=== PATIENT | female | born 1985 | race Caucasian/White ===

== ENCOUNTER 2024-02-05 01:05 | Day surgery (SDC) | payer BC, SELFPAY ==
[2024-02-04 18:10] VITALS: BP 139/75
--- NOTE | 2024-02-04 19:25 | ED.GENMED ---
History of Present Illness
General
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
Source: patient
Exam Limitations: none
Time Seen by Provider: 02/04/24 18:38
History of Present Illness
History of Present Illness:
This is a 38 year old female that comes in with c/o lower pain with concern for fibroids. States that last February she started with what she thought was a Bartholin cyst.States that it was growing inside. Then this winter it started to protrude out
and she started with lower abd pain. States that now it is so painful that he called an [facility] PAPER TESTER office near her that had same day visits. States that this was [facility]. Patient was sent to the ER. States that she has low back pain and she leaks
all the time. States that she dose feel like she is emptying her bladder. States that she has had chills in the past. Denies any fever, chest pain, SOB, nausea, vomiting, diarrhea, headache, dizziness, urinary burning.
Past History
Past History
ED Past Medical History: None; Negative Asthma, HTN, Hypercholesterolemia or NIDDM
ED Past Surgical History:
Social History
Tobacco: Non-smoker
Alcohol: Occasional
Personal:
Living: with family
Review of Systems
Review of Systems
All Other Systems: ROS reviewed and negative except as documented in HPI and ROS
Constitutional: Reports chills; Denies fever
EENT: Reports no symptoms
Respiratory: Reports no symptoms; Denies cough or trouble breathing
Cardiac: Reports no symptoms; Denies chest pain
ABD/GI: Reports abdominal pain (Lower abd pain); Denies nausea, vomiting or diarrhea
: Reports other (Something is hanging out); Denies dysuria, frequency or urgency
Musculoskeletal: Reports no symptoms
Skin: Reports no symptoms
Neurological: Reports no symptoms; Denies dizzy or headache
Psychiatric: Reports no symptoms
Phy Exam
General Physical Exam
General Presentation: mild distress
General age: appears stated age
General Skin: warm, dry and pale
General Habitus: normal
General Mental: alert
General Hydration: appears well hydrated
ENT Exam
ENT Exam: TM's normal, pharynx normal and neck supple
Eye Exam
Eye Exam: EOMI
Cardiovascular Exam
Cardiovascular Exam: no edema, no murmur, normal peripheral pulses and tachycardia
Pulmonary Exam
Pulmonary Exam: lungs clear, no respiratory distress, no rales, chest non tender, no crackles, no rhonchi, no wheezing and no cough
Gastrointestinal Exam
Gastrointestinal Exam: normal bowel sounds, soft, no organomegaly, no pulsatile mass, non distended and tender (Slight lower abd tenderness with palpation)
Genitourinary Exam Female
Vaginal Exam: other (Large prolapsed, believed to be the Uterus)
Vaginal Bleeding: none
Musculoskeletal Exam
Musculoskeletal Exam: full ROM and no edema
Skin Exam
Skin Exam: normal color, warm/dry, no rash and no petechia
Psychiatric Exam
Psychiatric Exam: normal mood/affect
Course
Orders/Labs/Results
Orders:
Orders
02/04/24 19:24
CT Abd/pelvis W Iv Cont Urgent
Comment: Concern for Uterine prolapse
Reason For Exam: Lower abd pain.
Test Result ONCE
02/04/24 20:24
Type+Screen Urgent
Complete Blood Count/With Diff Urgent
Comprehensive Metabolic Panel Urgent
HCG, Serum Qualitative Screen Urgent
Lactic Acid Urgent
02/04/24 20:37
Urinalysis Reflex To Culture Urgent
Date Specimen was Collected: 02/04/24
Time Specimen was Collected: 20:33
Urine Microscopic Reflex Cult Urgent
Urine Culture Urgent
AGGIE Source: U
Specimen Description:
Date Specimen was Collected: 02/04/24
Time Specimen was Collected: 20:33
02/04/24 21:30
* Blood Bank Products Urgent
Blood Bank Products: *Packed RBC Leuko(PRBC's)
Quantity: 2
Transfuse Today: Yes
Reason: Anemia
IV Insert/Care/Rem.- Treatment PRN
02/04/24 23:14
HYDROmorphone [Dilaudid] 1 mg IV NOW STA
Ondansetron Injectable [Zofran] 4 mg IV NOW STA
Abnormal Lab Results
02/04/24 02/04/24
20:24 20:37
WBC 12.3 H 10^3/uL
(4.8-10.8)
RBC 3.71 L 10^6/uL
(4.20-5.40)
Hgb 6.8 L* g/dL
(12.0-16.0)
Hct 23.5 L %
(37.0-47.0)
MCV 63.1 L fL
(81.0-99.0)
MCH 18.3 L pg
(27.0-31.0)
MCHC 29.1 L g/dL
(33.0-37.0)
RDW 19.1 H %
(11.5-14.5)
Plt Count 790 H 10^3/uL
(130-400)
Abs Immat Gran (auto) 0.1 H 10^3/uL
(0-0.05)
Absolute Neuts (auto) 9.5 H 10^3/uL
(1.4-6.5)
Absolute Monos (auto) 0.9 H 10^3/uL
(0.1-0.6)
Neutrophils % 77.4 H %
(42.2-75.2)
Lymphocytes % 11.9 L %
(20.5-51.1)
Urine Ketones Trace A
(Negative)
Ur Occult Blood Reflex 2+ A
(Negative)
Leukocyte Esterase Rfl 2+ A
(Negative)
Urine RBC 11-15 A /HPF
(0-2)
Urine WBC (Reflex) 11-15 A /HPF
(0-5)
Urine Bacteria (Reflex) Moderate A
(Negative)
Crossmatch IS Only See Detail
02/04/24 20:24
02/04/24 20:24
Leukocytosis. H/H very low. Anemia, Plt elevated. Urine questionable for infection. HCG negative.
Vital Signs
Initial and Last Documented VS:
Initial Vital Signs
Temp Pulse Resp BP Pulse Ox
98.4 F 110 20 139/75 99
02/04/24 18:10 02/04/24 18:10 02/04/24 18:10 02/04/24 18:10 02/04/24 18:10
Last Documented Vital Signs
Temp Pulse Resp BP Pulse Ox
98.4 F 110 20 139/75 99
02/04/24 18:10 02/04/24 18:10 02/04/24 18:10 02/04/24 18:10 02/04/24 18:10
MDM/Problems Addressed
Differential Diagnosis Includes:
Uterine Prolapse, Bladder prolapse.
MDM/Problems Addressed:
This is a 38 year old female that started last February with the feeling that she has bartholin cyst. States that this continued to grow and know is very painful and hanging out.
Will get labs and CT scan.
Back into see patient and . Explained that her Hgb is very low. Would like to give patient blood. Consent signed and PRBC's ordered.
Message sent to Dr. Gupta to see if patient can be admitted under [facility]. Await her response.
Chronic conditions affecting care:
NA
Acute Exacerbation and/or Progression of Chronic Illness:
NA
*Radiology
Radiology exam reviewed: radiology read reviewed (CT-Prolapsed of the cervix and lower uterie segment. No acute inflammatory process within the abd or pelvis. NO bowel obstruction. NO obstructive Uropathy. 2 small low-attenuation structures in the
liver, as described. MRI may be considered as further evaluation/characterization. )
*Pulse Oximetry
Patient hypoxic: no
*EKG
Interpreted by ED Provider?: NA
Rate: EKG- N/A
*Film Technician Interpretation
Rate: Film Technician- N/A
*Critical Care Note
Total Time (30-74mins, 75-104mins- exclusive of procedures): Not Applicable
ED Attending Note
-
Portions of this chart may have been created with voice recognition software.� Occasional wrong word or��sound alike� substitutions may have occurred due to the inherent limitations of voice recognition software.
Discharge Plan
Departure
Patient Disposition: Admit
Date of Disposition: 02/04/24
Time of Disposition: 23:28
Admit to: Med/Surg
Presentation/result/management discussed w/ accepting MD/DO: Hospitalist
Patient with high blood pressure during this ER visit?: Yes
Condition: Good
Covid-19: Not Applicable
Discharge Problem:
Signs and symptoms of anemia, Complete uterine prolapse
Prescriptions:
No Action
vit-iron fum-folic ac [ Tablet] 1 EACH tablet
ferrous sulfate [iron] 325 MG tablet
325 mg PO
Referrals:
NONE,* [Active] -
Interventions
Interventions:
*Risk Screen - Suicide Last Done: 02/04/24 18:10
*General Assessment Last Done: 02/04/24 18:10
*Neglect/Abuse Screening Last Done: 02/04/24 18:10
ED- Fall Risk Assessment Last Done: 02/04/24 20:30
*ED COVID-19 Vaccine History Last Done: 02/04/24 20:30
ED-Female Genitourinary Assessment Last Done: 02/04/24 20:30
Discharge Date and Time
Print Language: TURKMEN
[2024-02-04 20:30] VITALS: BMI 26.8
[2024-02-04 21:03] LABS: Urine Albumin Trace (Neg - Trace); Urine Bilirubin Negative (Negative); Urine Character Clear (Clear); Urine Color Yellow; Urine Glucose Negative (Negative); Urine Ketone Trace (Negative); Urine Leukocyte 2+ (Negative); Urine Nitrite Negative (Negative); Urine Occult Blood 2+ (Negative); Urine Urobilinogen Negative (Neg - 1+)
[2024-02-04 21:08] LABS: % Basophils 0.6 % (0-2); % Eosinophils 2.5 % (0-6); % Immature Granulocytes 0.4 % (0-0.5); % Lymphocytes 11.9 % (20.5-51.1); % Monocytes 7.3 % (1.7-9.3); % Neutrophils 77.4 % (42.2-75.2); Absolute Basophils 0.1 10^3/uL (0-0.2); Absolute Eosinophils 0.3 10^3/uL (0-0.7); Absolute Immature Granulocytes 0.1 10^3/uL (0-0.05); Absolute Lymphocytes 1.5 10^3/uL (1.2-3.4); Absolute Monocytes 0.9 10^3/uL (0.1-0.6); Absolute Neutrophils 9.5 10^3/uL (1.4-6.5); Hematocrit 23.5 % (37.0-47.0); Hemoglobin 6.8 g/dL (12.0-16.0); Mean Corp Hgb Conc. 29.1 g/dL (33.0-37.0); Mean Corpuscular Hgb 18.3 pg (27.0-31.0); Mean Corpuscular Volume 63.1 fL (81.0-99.0); Nucleated Red Blood Cells % 0 %; Red Blood Cell Count 3.71 10^6/uL (4.20-5.40); Red Cell Dist. Width 19.1 % (11.5-14.5); White Blood Cell Count 12.3 10^3/uL (4.8-10.8)
[2024-02-04 21:12] LABS: HCG, Serum Qualitative Screen Negative
[2024-02-04 21:14] LABS: Lactic Acid 1.4 mmol/L (0.7-2.0)
[2024-02-04 21:15] LABS: Urine Mucus Moderate
[2024-02-04 21:17] LABS: ALT (SGPT) 15 U/L (0-35); AST (SGOT) 18 U/L (14-36); Albumin 3.6 g/dl (3.5-5.0); Alkaline Phosphatase 84 U/L (38-126); Blood Urea Nitrogen 11 mg/dl (7-17); Calcium 8.8 mg/dl (8.4-10.2); Carbon Dioxide 25 mmol/L (22-30); Chloride 105 mmol/L (98-107); Estimated Creatinine Clearance 125 ml/min; Glucose 94 mg/dl (70-99); Potassium 3.6 mmol/L (3.5-5.1); Sodium 139 mmol/L (135-145); Total Bilirubin 0.3 mg/dl (0.2-1.3); Total Protein 6.5 g/dl (6.3-8.2); eGFR > 60.00
[2024-02-04 21:18] LABS: Urine Bacteria Moderate (Negative); Urine Calcium Oxalate Crystals Present
[2024-02-04 21:22] LABS: Mean Platelet Volume 9.1 fL (7.4-10.4); Platelet Count 790 10^3/uL (130-400)
[2024-02-04 21:26] LABS: Hypochromasia 2+; Normal RBC Morphology No; Ovalocytes 1+
[2024-02-04 23:35] VITALS: BP 122/83
[2024-02-04 23:38] VITALS: BP 113/79
[2024-02-04 23:55] VITALS: BP 118/75
[2024-02-05] VITALS (23 sets, daily range): BP systolic 104–129; BP diastolic 65–84; BMI 26.4
--- NOTE | 2024-02-05 00:45 | HPS.HSE ---
Family Physician
-
Family Physician: Scotty Sevilla
Chief Complaint
-
lower pelvic pain
History of Present Illness
The patient is a 38 yo woman with past medical history significant for anemia, heavy menses, ADD, anxiety, , who presents to the ED due to vaginal bleeding and prolapsed uterus. She has been having increasing fatigue, feeling 'bad' and has
also had what she though was an enlarging Bartholin cyst in the vaginal region, for a 'very long time.' She has severe anxiety regarding going to the hospital/doctors and so has not seen Paper Reeler since the of her 10 yo child in 2013. She has an 18
yo and 10 yo. She has had significant low back pain keeping her from sleeping well at night, and a large prolapsed uterus. During menses she has to use depends and towels. She denies fever, no active n/v, no diarrhea. She does have difficulty
emptying her bladder.
HCG negative
CT findings of
ED findings:
Medical History
Past Medical History
Past Medical History: Reports Psychiatric (Anxiety, ADD) and Other (Anemia)
Past Surgical History: Reports (2012)
Social History
Tobacco: Non-smoker
Alcohol: None
Drug: None
Personal:
Living: With Family
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
Family History
Family History: Other (HTN)
Allergies / Home Medications
Allergies reflects when Allergies were last updated in [employer].
Home Medications with original date entered in [employer]
Allergy/Medication List:
Allergies
Allergy/AdvReac Type Severity Reaction Status Date / Time
No Known Allergies Allergy Verified 02/05/24 00:18
Home Medications
lisdexamfetamine 40 mg capsule (Vyvanse) 40 mg PO BID 02/05/24
Review of Systems
-
A 12 point ROS was completed and negative except as noted: Yes
Physical Exam
Vital Signs
Vital Signs
Temp Pulse Resp BP Pulse Ox
99.6 F 98 16 129/82 100
02/04/24 23:55 02/04/24 23:55 02/04/24 23:55 02/05/24 00:06 02/05/24 00:06
Physical Exam
General: Well Developed, Well Nourished, No Apparent Distress and Conversant
HEENT: NormoCephalic, Anicteric and Moist mucous membranes
Respiratory: Clear
Cardiac: S1/S2 and Regular Rhythm
GI: Soft, Non Tender and Non Distended
Genito-urinary: Other (large prolapse)
Musculoskeletal: No Clubbing, No Cyanosis and No Edema
Skin: Warm and Dry
Neuro: AO x 3 and No Motor Deficits
Laboratory Results
-
02/04/24 20:24
02/04/24 20:24
Laboratory Results
Lactic Acid 1.4 mmol/L (0.7-2.0) 02/04/24 20:24
Total Bilirubin 0.3 mg/dl (0.2-1.3) 02/04/24 20:24
AST 18 U/L (14-36) 02/04/24 20:24
ALT 15 U/L (0-35) 02/04/24 20:24
Alkaline Phosphatase 84 U/L (38-126) 02/04/24 20:24
Data Reviewed
-
Lab Data: Labs Reviewed by me, Discussed with Nurse, Discussed with Patient and Discussed with Family
Impression/Plan
-
IMPRESSION:
#Acute or subacute blood loss anemia
#Likely severe iron-deficiency anemia
#Prolapse of the cervix and lower uterine segment.
#ADD
#Anxiety
#Incidental finding on CT:
Liver: Normal in size. Along the posterior margin of the right lobe there is an 11 mm low-attenuation space-occupying lesion which is diminished in attenuation on delayed imaging. Internal CT density measurement is approximately 32, unchanged on
delayed imaging. Therefore, no associated enhancement. Probable small complex cyst. In the right hepatic dome, there is a small 11 mm low-attenuation structure which is nearly isodense on delayed imaging. This suggests internal enhancement. Possible
considerations include hemangioma, adenoma, or focal nodular hyperplasia. MRI may be considered as further evaluation/characterization.
PLAN:
-Admit med/surg
-Paper Reeler consulted from ED, Paper Reeler consult to address uterine prolapse
-transfusing 2 unit PRBC starting in ED, repeat CBC post transfusion
-iron studies
-Vyvanse BID per home med
-Discuss incidental findings on CT of liver possible cystic lesion- rec MRI OP follow-up
DVT proph-PCDs
Full Code
[2024-02-05] MEDS: ZOFRAN 4 MG IV (01:30)
[2024-02-05] MEDS: DILAUDID 1 MG IV (01:31)
--- NOTE | 2024-02-05 01:33 | CON.MD ---
Consultation - Medical
-
38yo presents to ER due to lower abdominal cramping and mass protruding from her vagina. She states that February 2023 she felt a lump in the vagina and thought she had a Bartholin's cyst, she tried soaking and sitz baths to see if this will
help, but then in the winter, she felt something fall completely out of her vagina and has stayed there. She does not know what it is. Since it came out, she has had consistent yellow/off white drainage that has required her to wear depends daily.
She changes the depends every 2 hours due to the drainage. She does not believe this is urine. Also when the mass came out, she started having a lot of lower pelvic and back pain. She admits to a h/o very heavy menses and anemia, but since this mass
came out, her periods have been much better. She recently completed her period. Says they are monthly, last for 4-5 days. Had one episode of heavy intermenstrual bleeding once in July but none since. She states that she is very anxious about
being in a Dr. office so has not been seen by a BOTTLER HELPER since delivery of her daughter in 2012. She has an annual visit with her PCP but does not do blood work so cannot say where her hgb normally lives. She denies symptoms of anemia currently. she
denies issues with emptying her bowel or bladder. denies blood in her stool.
On 02/03 she states the pain started to get unbearable so she called around to BOTTLER HELPER offices in the area to see who can see her that day. She saw a BOTTLER HELPER with [facility] who did an exam and felt she had a large prolapsed fibroid & uterus and
recommended she would need a hysterectomy. Patient did not feel comfortable continuing care through them, so presented to the ER here.
PMHx: ADHD
PSHx: C/S x1
POBHx: x1, C/Sx1
PGYNHx: per HPI
SHx:no tob/ill, occasional etoh use
Meds: Vyvanse
All: NKDA
Vitals:117/81 T99.6 SpO2 100%
CBC:12.3/6.8-23.5/790
Gen: nad aaox3
Abd: soft, nt, nd
Pelvic: there is a large approx 10-12cm diameter soft tissue mass that has completely prolapsed through the introitus, there is an off white/yellow exudate from the anterior surface of the mass, the posterior surface touches the bed and appears
bruised. Anatomy is very distorted so it is difficult for me to determine exactly where it is originating from but it seems to be the lower uterine segment. the cervix appears to be dilated around the mass, with the uterus also prolapsed to just
beyond the introitus. She denies tenderness when the mass is palpated. There is no bleeding noted. labia appear normal.
CT A/P: Lung bases clear. No pleural effusion.
Abdomen:
Liver: Normal in size. Along the posterior margin of the right lobe there is an 11 mm low-attenuation space-occupying lesion which is diminished in attenuation on delayed imaging. Internal CT density measurement is approximately 32, unchanged on
delayed imaging. Therefore, no associated enhancement. Probable small complex cyst. In the right hepatic dome, there is a small 11 mm low-attenuation structure which is nearly isodense on delayed imaging. This suggests internal enhancement. Possible
considerations include hemangioma, adenoma, or focal nodular hyperplasia. MRI may be considered as further evaluation/characterization.
Gallbladder: Relatively contracted.
Bile Ducts: No bile duct dilatation.
Pancreas: Within normal limits.
Spleen: Normal in size.
Adrenals: No adrenal mass.
Kidneys/Ureters: No obstructive uropathy. Subcentimeter cyst in the lower pole of the left kidney. There is a subtle lobulation of the peripheral luminal margin, bilaterally. Probable lobation, or less likely minor peripheral cortical
scarring.
Bowel: No obstruction or wall thickening. Mild colonic fecal burden.
Appendix: The appendix is normal.
Peritoneum: No ascites or free air.
Vessels: No aortic aneurysm.
Retroperitoneum: No retroperitoneal periaortic mass or adenopathy.
Abdominal Wall: No anterior abdominal wall hernia.
Pelvis:Soft tissue thickening is demonstrated in the region of the introitus, consistent with prolapse of the cervix and lower uterine segment. There are a few tiny low-attenuation foci, possibly reflecting cervical nabothian cysts.
No pelvic sidewall mass or adenopathy. The ovaries are symmetric, with small follicles noted. Urinary bladder is underdistended, and unremarkable.
Bones: No suspicious lesions.
A/P: 38yo with anemia and large pelvic mass
1. Anemia:
-likely related to menstrual blood loss given her reported long h/o heavy menses
-2U PRBCs already started for patient
-patient recently completed her period and is not actively bleeding
-suggest Fe studies to evaluate for Fe deficiency as well
-trend CBC
2. Pelvic Mass
-discussed with patient that she has a large pelvic mass that seems to be pulling her uterus and cervix down resulting in the uterine prolapse. The source of the mass is not clear- > cervical vs ISABELLA. Could be a prolapsed fibroid (more likely) vs a
cervical cancer (less likely- tissue is not necrotic or friable, no lymphadenopathy or evidence of metastatic disease on CT scan).
-The tissue can be biopsied to get an idea of its source. This may be done at bedside or may be better to do an EUA and sample then. Can consider Rip Machine Operator-Onc consult to also assist with this evaluation
--- NOTE | 2024-02-05 03:00 | PTCARENOTE ---
Received pt from er,anxious,but tolerated transfer well.As soon as pt got off of stretcher she wanted to go into BR and change her depends and pads she was wearing due to all the yellow vaginal drainage,pt has been wearing pads and towels at home
to absorb the discharge.Pt tolerated oob well.VS recorded all stable.Afebrile.Pt very anxious and very open about telling this RN about her anxiety.Physical assessment preformed,pt cooperative.#2 unit packed RBCs initiated at this time. at
bedside.
[2024-02-05] MEDS: NSS 1000 IV ×2 (04:58→18:36)
[2024-02-05 08:06] LABS: INR 1.15; PT 14.6 Sec (11.4-14.6)
[2024-02-05 08:08] LABS: Hematocrit 24.9 % (37.0-47.0); Hemoglobin 7.6 g/dL (12.0-16.0); Mean Corp Hgb Conc. 30.5 g/dL (33.0-37.0); Mean Corpuscular Hgb 20.5 pg (27.0-31.0); Mean Corpuscular Volume 67.1 fL (81.0-99.0); Platelet Count 554 10^3/uL (130-400); Red Blood Cell Count 3.71 10^6/uL (4.20-5.40); Red Cell Dist. Width 20.8 % (11.5-14.5)
[2024-02-05 08:10] LABS: Iron 48 ug/dl (37-170)
[2024-02-05 08:19] LABS: Percent Saturation 18 % (20-50); Total Iron Binding Capacity 266 ug/dl (265-497)
[2024-02-05 08:46] LABS: Ferritin 9.2 ng/ml (6.24-137)
[2024-02-05] MEDS: TYLENOL 650 MG PO (09:29)
--- NOTE | 2024-02-05 14:37 | W.PN.UPDATE ---
Update Note
Progress Note Update
Patient seen
Discussed with PROMOTIONAL ADVERTISING ASSISTANT service.
Briefly 38 years old female with severe anemia, although with no evidence of acute blood loss.
Anemia likely due to excessive menstrual bleeding
Workup also consistent with pelvic mass possibly fibroid.
Patient was transfused 2 units of packed blood cells with hemoglobin improved from 6.8-7.6. Iron studies pending.
Additional workup outlined by PROMOTIONAL ADVERTISING ASSISTANT.
Patient will be transferred to PROMOTIONAL ADVERTISING ASSISTANT service
Hospitalist/medicine service will sign off at this point. Please call with questions or if any active medical problems.
--- NOTE | 2024-02-05 15:29 | CM ---
Alert awake oriented patient who lives with her Jm who lives in a 2 story home with 2 step to enter and 14 steps to bed and bathroom. They have 2 children 10yo and 18yo.She is independent in driving and in all activities of daily
living.She was offered VN she declined need.Observation letter copy given.
No VN hx / No SNF history. No adaptive devices
Pharmacy [facility] [address]
PCP DR Sevilla
PLAN Home Declined VN
--- NOTE | 2024-02-05 19:09 | W.PN.OBG.DWH ---
Today's Communication / Plan
-
REcommend EUA, excision of mass, possible D&C. Risks, benefits and alternatives reviewed.
Urgent nature due to size of mass and bleeding
Possible hysterectomy if uncontrolled bleeding.
D/W Dr. Gale
Assessment/Plan
-
Prolapsed pelvic mass protruding through cervix-appears to be large peduculated prolpased fibroid
anemia related to chronic blood loss
Subjective Data
-
Pt seen and examined.
I was delayed in seeing patient due to emergencies in L&D
No dizziness or lightheadness.
Obtained hx
Objective Data
-
Laboratory Results
02/05/24 07:35
02/04/24 20:24
Vital Signs
Temp Pulse Resp BP Pulse Ox
98.2 F 80 17 116/73 100
VSS 02/05/24 15:03 02/05/24 15:03 02/05/24 15:03 02/05/24 15:03 02/05/24 15:03
VSS
abd: soft
LArge 10cm pedunculated smooth mass protruding through cervix outside of vagina. Appears to be peduculated prolapsed fibroid
Posterior fornix is smooth and parametrial space is normal.
Uterus palpated normally.
Cervix prolapsed through vaginal opening
[2024-02-05] MEDS: DILAUDID 0.5 MG IV ×2 (21:25→21:38)
--- NOTE | 2024-02-05 22:00 | W.IMMPOSTOP ---
Surgical Immed Post Op Note
-
Primary Surgeon: Katie Cedillo DO and Dr. Stuart Gale
Pre-op Diagnosis: Prolapsed cervical mass, anemia, menorrhagia, pelvic pain
Post-op Diagnosis: same
Procedure Performed: Exam under anesthesia, excision of prolapsed cervical mass/cervical myomectomy, cervical biopsy, dilation and curettage
Anesthesia Type: general Dr. Velazquez
Specimen / Cultures: 1. cervical mass/prolapsed fibroid 2. biopsy of posterior cervix 3. endometrial curettings
Estimated Blood Loss: 20ml
Complications: none
Operative Findings: Large (approx 10cm)pedunculated, cervical mass/suspected prolapsed fibroid on a wide stalk prolapsed through cervix and vagina.
Prolapsed dilated cervix. Firm posterior cervix (biopsied). Uterus sounded to 9-10 cm.
Vaginal packing and carroll placed.
Counts correct times 2.
stable to recovery.
[2024-02-05] MEDS: NORMOSOL-R/PLASMALYTE-A 1000 IV (22:26)
--- NOTE | 2024-02-05 22:37 | PTCARENOTE ---
Pt arrived to 2S via bed from PACU at 2155. Pt drowsy but arousable to verbal stimuli. VSS. IVF infusing. Head to toe assessment complete. Pts at bedside. Bed locked and in the lowest position. call kirk within reach.
[2024-02-06 01:00] VITALS: BP 112/71
[2024-02-06 02:00] VITALS: BP 109/75
[2024-02-06 03:59] VITALS: BP 109/70
--- NOTE | 2024-02-06 04:33 | DOWNTIME ---
There was a Intense Client Ham Stripper Downtime on 02/06/2024 from 0100 to 02/06/2024 at 0255. Downtime documentation of patient's care, including medication administrations, has been reconciled in the electronic record per guidelines. Refer to the
patient's paper chart under the miscellaneous tab to see printed paper medication records and downtime forms.
[2024-02-06] MEDS: NORMOSOL-R/PLASMALYTE-A 1000 IV (05:25)
[2024-02-06 07:15] VITALS: BP 122/78
[2024-02-06] MEDS: TYLENOL 650 MG PO (08:10)
--- NOTE | 2024-02-06 10:18 | W.PN.GYN ---
Today's Communication / Plan
-
-Pt to ambulate with assistance
-Trial to void
-If ambulating and voiding without issue, may be discharged home today. Discussed post-op limitations, return precautions, medications, iron supplementation and follow-up plan. RTO to see Dr. Cedillo in 1-2wks.
Physician Note
-
Pt doing well this morning. Beauchamp was removed earlier this morning, but vaginal packing still in place. Has not yet ambulated or voided since surgery. She is tolerating a reg diet. Minimal back pain, well-controlled with Tylenol. No other pain. Not
requiring narcotic medication. Not bleeding through the packing. Denies dizziness, CP, SOB, palpitations, leg pain.
VSS- see below
Gen: NAD, WD/WN
Abd: soft, NTTP, ND, no mass
: NEFG, vaginal packing removed with small amount of blood on it. No active bleeding noted after packing removed.
Extr: no c/c/e, no calf TTP
labs- see below
A/P 38yo F POD 1 s/p resection of large prolapsed fibroid/LEEP/D&C. Overall doing well.
Asymptomatic anemia (s/p 3 u PRBCs during this admission).
-Pt to ambulate with assistance
-Trial to void
-If ambulating and voiding without issue, may be discharged home today. Discussed post-op limitations, return precautions, medications, iron supplementation and follow-up plan. RTO to see Dr. Cedillo in 1-2wks.
Aadn Ballard, DO
Vital Signs / Labs
-
Vital Signs and Labs:
Temp Pulse Resp BP Pulse Ox
97.7 F 77 16 122/78 98
02/06/24 07:15 02/06/24 07:15 02/06/24 07:15 02/06/24 07:15 02/06/24 07:15
02/05/24 07:35
02/04/24 20:24
02/04/24
20:24
Crossmatch IS Only See Detail
--- NOTE | 2024-02-06 11:27 | W.DS.TRANS ---
DC Summary - Mangle Operator Garments
-
Discharge Instructions:
Discharge Diagnosis/Procedures prolapsed fibroid, s/p myomectomy, s/p D&C; cervical
ulceration, s/p LEEP; anemia, s/p blood
transfusion
Instructions:
Stand-Alone Forms: Same Day Services Discharge
Changes to Home Medications: No
Discharge Medications:
DC Medications w/original date entered in [facility]
lisdexamfetamine 40 mg capsule (Vyvanse) 40 mg PO BID ADHD/anxiety 02/05/24
acetaminophen 325 mg capsule 650 mg (2 x 325 mg) PO Q6HPRN PRN mild pain/ fever>100.5F #0 caps 02/06/24
ferrous sulfate 325 mg (65 mg iron) tablet (FeroSul) 325 mg PO DAILY #0 tabs 02/06/24
ibuprofen 200 mg tablet 600 mg (3 x 200 mg) PO Q6HPRN PRN pain #0 tabs 02/06/24
sennosides 8.6 mg-docusate sodium 50 mg tablet (Stool Softener-Laxative) 1 tab PO BIDPRN PRN constipation #0 tabs 02/06/24
Home Medication Changes
No changes to your home medication.
Pending Results: Yes
Additional Pending Results:
surgical pathology pending. Results will be discussed with you at post-op appointment with Dr. Cedillo.
Total time spent discharging patient (in min): 45
--- NOTE | 2024-02-06 11:37 | W.PN.UPDATE ---
Update Note
Progress Note Update
Patient ambulating and voiding without issue.
Will d/c home. Instructions and return precautions already reviewed with patient.
D/c sum dict # [id number]
[2024-02-06 11:40] VITALS: BP 116/72
--- NOTE | 2024-02-06 19:24 | W.PN.UPDATE ---
Update Note
Progress Note Update
I was detained in a delivery this am so signed out to Dr. Ballard who was covering today, to see Chinyere this am.
I called this evening to check in how she is feeling after discharge home today. No answer. LM I was calling to check in with her. LM my office will touch base with her re: setting up a postop visit within next 1-2 wks. Advised to call office if hsa
not heard within next few days re: appt.
[2024-02-06 21:25] LABS: Transferrin 196 mg/dL (200-360)
== END 2024-02-06 11:59 | disposition home or self-care (01) ==
LOC: SDS 01:05
PROVIDERS: Clinical Nurse Specialist Family Health; Internal Medicine; Obstetrics & Gynecology; EMERGENCY PHYSICIAN Student in an Organized Health Care Education/Training Program; FAMILY PHYSICIAN Family Medicine
DX: N81.3 Complete uterovaginal prolapse (principal); D25.9 Leiomyoma of uterus, unspecified; N92.0 Excessive and frequent menstruation with regular cycle; N93.9 Abnormal uterine and vaginal bleeding, unspecified; D62 Acute posthemorrhagic anemia; F41.9 Anxiety disorder, unspecified
CPT/HCPCS: 58145; 57522; 88305; 88307; 36430; 74177; 80053; 81003; 81015; 82728; 83540; 83550; 83605; 84466; 84703; 85025; 85027; 85610; 86850; 86900; 86901; 86920; 87086; 88341; 88342; 99285; C1776; P9016; Q9967

== ENCOUNTER → 2024-04-05 08:12 | Outpatient (REF) | payer BC, SELFPAY | LOC: MRI 08:12 | PROVIDERS: ATTENDING PHYSICIAN Obstetrics & Gynecology Gynecologic Oncology; FAMILY PHYSICIAN Family Medicine | DX: D25.9 Leiomyoma of uterus, unspecified (principal); C55 Malignant neoplasm of uterus, part unspecified | CPT/HCPCS: 72197; A9575 ==

== ENCOUNTER → 2024-04-29 06:19 | Day surgery (SDC) | payer BC, SELFPAY ==
[2024-04-25 09:59] VITALS: BMI 28.7
[2024-04-25 10:25] LABS: % Basophils 1.1 % (0-2); % Eosinophils 8.5 % (0-6); % Immature Granulocytes 0.2 % (0-0.5); % Lymphocytes 23.7 % (20.5-51.1); % Monocytes 7.6 % (1.7-9.3); % Neutrophils 58.9 % (42.2-75.2); Absolute Basophils 0.1 10^3/uL (0-0.2); Absolute Eosinophils 0.4 10^3/uL (0-0.7); Absolute Lymphocytes 1.1 10^3/uL (1.2-3.4); Absolute Monocytes 0.4 10^3/uL (0.1-0.6); Absolute Neutrophils 2.8 10^3/uL (1.4-6.5); Hematocrit 31.2 % (37.0-47.0); Hemoglobin 10.1 g/dL (12.0-16.0); Mean Corp Hgb Conc. 32.4 g/dL (33.0-37.0); Mean Corpuscular Hgb 27.6 pg (27.0-31.0); Mean Corpuscular Volume 85.2 fL (81.0-99.0); Mean Platelet Volume 10.6 fL (7.4-10.4); Nucleated Red Blood Cells % 0 %; Platelet Count 256 10^3/uL (130-400); Red Blood Cell Count 3.66 10^6/uL (4.20-5.40); Red Cell Dist. Width 17.1 % (11.5-14.5); White Blood Cell Count 4.7 10^3/uL (4.8-10.8)
[2024-04-25 10:52] LABS: Blood Urea Nitrogen 13 mg/dl (7-17); Carbon Dioxide 26 mmol/L (22-30); Chloride 102 mmol/L (98-107); Estimated Creatinine Clearance 118 ml/min; Glucose 88 mg/dl (70-99); Potassium 4.3 mmol/L (3.5-5.1); Sodium 138 mmol/L (135-145); eGFR > 60.00
[2024-04-25 12:44] LABS: Beta HCG Quantitative < 2.39 mIU/ml
[2024-04-29] VITALS (10 sets, daily range): BP systolic 117–136; BP diastolic 51–93; BMI 28.7
[2024-04-29] MEDS: TYLENOL 1000 MG PO ×2 (08:27→16:39)
[2024-04-29] MEDS: NEURONTIN 300 MG PO (08:28)
[2024-04-29] MEDS: Pyridium 200 MG PO (08:28)
[2024-04-29] MEDS: NORMOSOL-R/PLASMALYTE-A 1000 IV (08:30)
[2024-04-29] MEDS: HEPARIN 5000 UNITS SC (08:38)
--- NOTE | 2024-04-29 08:59 | W.SUR.PREOP ---
Pre-Operative Surgical Note
-
I have examined this patient prior to the performance of the scheduled procedure.
The patient's condition is unchanged from the time of the current History and
Physical and the patient is able to undergo the scheduled procedure.
--- NOTE | 2024-04-29 12:46 | W.IMMPOSTOP ---
Surgical Immed Post Op Note
-
Primary Surgeon: Katie Cedillo DO
Head Mechanic: KATJA Mcmanus
Pre-op Diagnosis: Menorrhagia, anemia, pelvic organ prolpase
Post-op Diagnosis: same
Procedure Performed: RA TLH Bilateral salpingectomy
Anesthesia Type: general Dr. Burk
Specimen / Cultures: uterus,cervix, fallopian tubes
Estimated Blood Loss: 10ml
Urine output: 800ml, clear
Complications: none
Operative Findings: Uterus sounded to 12 cm, normal in appearance. Normal appearing fallopian tubes and ovaries bilaterally.Some scar tissue noted lower uterine segment in vacinity of prior csection scar.
counts correct times 2.
Stable and handed over to care of Dr. Hyatt.
[2024-04-29] MEDS: DILAUDID 0.25 MG IV ×3 (14:09→14:38)
--- NOTE | 2024-04-29 15:23 | SUR.PHASEI ---
Dr Perez updated on patients recovery in PACU, patient still wants to go home. Somnolent still, pain now mild. VSS. patients eyes are sore from removing her contact lenses pre -op. Genesis Ortiz RN BSN.
--- NOTE | 2024-04-29 15:31 | SUR.PHASEI ---
Patient reporting painful eyes , anesthesia notified of same. Genesis Ortiz RN.
--- NOTE | 2024-04-29 15:45 | SUR.PHASEI ---
Patient seen by anesthesia regarding ' painfull eyes' . No orders, ice pack in place. bladder backfilled and removed , [facility] called for transfer to [facility]. Genesis Ortiz RN BSN.
[2024-04-29] MEDS: TORADOL 15 MG IV (16:42)
== END | disposition home or self-care (01) ==
LOC: SDS 06:19
PROVIDERS: ATTENDING PHYSICIAN Obstetrics & Gynecology; FAMILY PHYSICIAN Family Medicine; REFERRING PHYSICIAN Obstetrics & Gynecology
DX: N92.0 Excessive and frequent menstruation with regular cycle (principal); D50.9 Iron deficiency anemia, unspecified; N83.8 Other noninflammatory disorders of ovary, fallopian tube and broad ligament
CPT/HCPCS: 58571; 88305; 36415; 80048; 84702; 85025; 86850; 86900; 86901; 93005

== ENCOUNTER → 2024-10-29 09:17 | Outpatient (REF) | payer BC, SELFPAY | LOC: WDC 09:17 | PROVIDERS: ATTENDING PHYSICIAN Obstetrics & Gynecology; FAMILY PHYSICIAN Family Medicine | DX: R92.8 Other abnormal and inconclusive findings on diagnostic imaging of breast (principal) | CPT/HCPCS: 77061; 77065 ==